=== PATIENT | male | born 2000 | race Two or more races ===

== ENCOUNTER 2019-07-08 10:02 | Emergency (ER) | payer MEDICAID ==
[~2019-07-08] VITALS: Ht 175.3 cm; Wt 81.6 kg
[2019-07-08 10:04] VITALS: BP 122/68
--- NOTE | 2019-07-08 10:14 | NUR ---
Patient ambulated to bed 4. RN evaluating patient at bedside.
[2019-07-08] MEDS ORDERED: KETOROLAC 30 MG/ML VIAL IM ONE (11:05)
--- NOTE | 2019-07-08 11:05 | NUR ---
Dr. Savage is evaluating the patient at bedside.
[2019-07-08] MEDS ORDERED: KETOROLAC 30 MG/ML VIAL IVP ONE (11:10)
[2019-07-08] MEDS ORDERED: NACL 0.9% 1,000 ML IV ONE (11:10)
--- NOTE | 2019-07-08 11:30 | NUR ---
C/O INTERMITTENT MORAN WITH N/V AND DIZZINESS X 1 WK---DENIES RECENT INJURY FULL CLEAR SPEECH, NO FACIAL ASYMMETRY NOTED, AMBULATORY WITH STEADY GAIT AT THIS TIME.
--- NOTE | 2019-07-08 11:32 | NUR ---
PT TO CT VIA WC
[2019-07-08] MEDS ORDERED: KETOROLAC 30 MG/ML VIAL ONE (13:02)
[2019-07-08 15:11] VITALS: BP 109/58
--- NOTE | 2019-07-08 15:11 | NUR ---
Patient discharged with v/s stable. Written and verbal after care instructions given and explained. Patient alert, oriented and verbalized understanding of instructions. Ambulatory with steady gait. All questions addressed prior to discharge. ID band removed. Patient advised to follow up with PMD. Rx of INDOMETHACIN given. Patient educated on indication of medication including possible reaction and side effects. Opportunity to ask questions provided and answered.
== END 2019-07-08 15:11 | disposition home or self-care (01) ==
LOC: MED 10:02
DX: G44.84 Primary exertional headache (principal)
CPT/HCPCS: 70450; 70496; 81002; 96374; 99284; J1885; J7030; Q9967